=== PATIENT | male | born 1955 ===

== ENCOUNTER 2021-06-27 13:55 | Outpatient (CLI) | payer MEDICARE, SELFPAY ==
--- NOTE | ~2021-06-27 | US_ITS ---
EXAMINATION: US arterial ankle brachial ind DATE: 06/27/2021 14:47 INDICATION: Signs and symptoms involving circulatory system. Heart disease and hypertension. TECHNIQUE: Segmental pressures and plethysmographic and Doppler waveforms of the brachial and lower e xtremity arteries were obtained. COMPARISON: 01/26/2018 FINDINGS: Right and left brachial artery pressures of 128 mm Hg and 132 mm Hg, respectively, are concordant (no rmal difference <= 30 mmHg). The right ankle-brachial index (JENNIFER) is 0.77 (normal >= 0.9-1.0). The right great toe-brachial index (TBI) is 0.49 (normal >= 0.65). Arterial Doppler waveforms are triphasic with brisk systolic upstroke s at both the right posterior tibial and dorsalis pedis arteries. The left JENNIFER is 0.85. The left TBI is 0.50. Arterial Doppler waveforms are triphasic with brisk systo lic upstrokes at both the left posterior tibial and dorsalis pedis arteries. IMPRESSION: 1. Mild arterial occlusive disease to the bilateral lower limbs with mildly decreased bilateral ABIs and TBIs. Reviewed, dictated and finalized at location A. REMOVAL SUPERVISOR IMPRESSION: 1. Mild arterial occlusive disease to the bilateral lower limbs with mildly dec reased bilateral ABIs and TBIs.
== END 2021-06-27 13:56 | disposition home or self-care (01) ==
LOC: CHSIMG 13:58
PROVIDERS: PCP Family Medicine; Visit Provider Family Medicine
DX: R09.89 Other specified symptoms and signs involving the circulatory and respiratory systems (principal)
CPT/HCPCS: 93922